=== PATIENT | male | born 1990 | race African-American/Black ===

== ENCOUNTER 2018-06-09 15:56 | Emergency (ER) | payer MEDICAID ==
[~2018-06-09] VITALS: Ht 177.8 cm; Wt 76.0 kg
[2018-06-09] MEDS ORDERED: LIDOCAINE HCL 1% 20ML VIAL (Pyxis) INJ MC ONE (18:00)
[2018-06-09] MEDS ORDERED: IBUPROFEN 600MG TABLET PO ONE (18:00)
[2018-06-09] MEDS ORDERED: HYDROCODONE/ACETAMINOPHEN 5/325MG TABLET PO ONE (18:00)
[2018-06-09] MEDS ORDERED: LIDOCAINE/EPINEPHR/TETRACAINE 3ML TP ONE (18:00)
[2018-06-09] MEDS ORDERED: LIDOCAINE HCL/PF 1% 10 MG/ML 5ML VIAL IJ NR (18:07)
[2018-06-09] MEDS ORDERED: TETANUS, DIPHTHERIA, PERTUSSIS VAC/PF 0.5ML (>7YR OLD) IM ONE (19:45)
[2018-06-09] MEDS ORDERED: SULFAMETHOXAZOLE/TRIMETHOPRIM 800/160MG TABLET PO ONE (20:15)
[2018-06-09 20:30] VITALS: BP 112/63
== END 2018-06-09 20:40 | disposition home or self-care (01) ==
LOC: ER 15:56
DX: L02.214 Cutaneous abscess of groin (principal); N43.2 Other hydrocele; Z23 Encounter for immunization
CPT/HCPCS: 10060; 76870; 90471; 90715; 93976; 99284; J3490; Z7610

== ENCOUNTER 2019-02-25 18:10 | Emergency (ER) | payer MEDICAID ==
[~2019-02-25] VITALS: Ht 177.8 cm; Wt 73.0 kg
[2019-02-25 20:13] LABS: CLARITY URINE CLEAR (CLEAR); COLOR URINE AMBER (YELLOW); KETONES URINE TRACE (NEGATIVE); LEUKOCYTE ESTERASE URINE NEGATIVE (NEGATIVE); NITRITE URINE NEGATIVE (NEGATIVE); OCCULT BLOOD URINE NEGATIVE (NEGATIVE); PROTEIN URINE TRACE (NEGATIVE); SPECIFIC GRAVITY URINE 1.031 (1.005-1.030)
[2019-02-25 21:45] VITALS: BP 115/67
[2019-02-27 04:13] LABS: HIV SCREEN 4G Non Reactive (Non Reactive)
[2019-02-28 04:13] LABS: CHLAMYDIA TRACHOMATIS NAA Negative (Negative); NEISSERIA GONORRHOEAE NAA Negative (Negative)
== END 2019-02-25 21:47 | disposition home or self-care (01) ==
LOC: ER 21:32
DX: L02.214 Cutaneous abscess of groin (principal); F17.200 Nicotine dependence, unspecified, uncomplicated; F12.10 Cannabis abuse, uncomplicated
CPT/HCPCS: 76870; 86592; 87389; 87491; 87591; 93976; 99284

== ENCOUNTER 2022-02-21 16:23 | Emergency (ER) | payer MEDICAID ==
[~2022-02-21] VITALS: Ht 175.3 cm; Wt 73.0 kg
[2022-02-21 16:38] VITALS: BP 120/63
[2022-02-21] MEDS ORDERED: CEFTRIAXONE SODIUM 500 MG/VIAL IM ONE (19:00)
[2022-02-21] MEDS ORDERED: DOXYCYCLINE HYCLATE 100MG CAPSULE PO ONE (19:00)
[2022-02-21 19:01] LABS: CLARITY URINE CLEAR (CLEAR); COLOR URINE YELLOW (YELLOW); KETONES URINE TRACE (NEGATIVE); LEUKOCYTE ESTERASE URINE NEGATIVE (NEGATIVE); NITRITE URINE NEGATIVE (NEGATIVE); OCCULT BLOOD URINE NEGATIVE (NEGATIVE); PROTEIN URINE NEGATIVE (NEGATIVE); SPECIFIC GRAVITY URINE 1.024 (1.005-1.030)
[2022-02-21] MEDS ORDERED: DOXY100C5 MT (19:20)
[2022-02-25 04:07] LABS: NEISSERIA GONORRHOEAE NAA Negative (Negative)
== END 2022-02-21 19:29 | disposition home or self-care (01) ==
LOC: ER 16:23
DX: R21 Rash and other nonspecific skin eruption (principal); F12.10 Cannabis abuse, uncomplicated
CPT/HCPCS: 81003; 87491; 87591; 96372; 99283; J0696

== ENCOUNTER 2022-05-30 15:45 | Emergency (ER) | payer OTHER, MEDICAID ==
[~2022-05-30] VITALS: Ht 175.3 cm; Wt 74.0 kg
[~2022-05-30 15:45] MED LIST: DOXY100C5 MT
[2022-05-30 16:06] VITALS: BP 112/58
[2022-05-30] MEDS ORDERED: CIPR750T4 MT (23:12)
[2022-05-30] MEDS ORDERED: CIPROFLOXACIN HCL 250MG TABLET PO NR (23:30)
== END 2022-05-30 23:41 | disposition home or self-care (01) ==
LOC: ER 15:45
DX: H61.012 Acute perichondritis of left external ear (principal); F12.10 Cannabis abuse, uncomplicated
CPT/HCPCS: 99283

== ENCOUNTER 2022-07-07 11:19 | Emergency (ER) | payer MEDICAID, OTHER ==
[~2022-07-07] VITALS: Ht 175.3 cm; Wt 65.0 kg
[~2022-07-07 11:19] MED LIST changes: +CIPR750T4 MT
[2022-07-07 11:33] VITALS: BP 101/55
[2022-07-07] MEDS ORDERED: MAGNESIUM/ALUMINUM HYDROXIDE/SIMETHICONE 30ML UDC PO STA (14:00)
[2022-07-07 15:01] LABS: BASOPHILS % 0.3 % (0.0-2.0); EOSINOPHILS % 3.5 % (0.0-5.0); HEMATOCRIT. 51.7 % (42.0-52.0); HEMOGLOBIN. 17.4 g/dL (14.0-18.0); LYMPHOCYTES % 41.2 % (20.0-50.0); MEAN CORPUSCULAR HEMOGLOBIN 31.4 pg (28.0-32.0); MEAN CORPUSCULAR VOLUME 93.2 fL (80.0-94.0); MONOCYTES % 5.8 % (2.0-8.0); NEUTROPHILS % 49.2 % (40.0-76.0); PLATELET 285 x1000/uL (130-400); RED BLOOD CELL COUNT 5.55 mill/uL (4.7-6.1); RED CELL DISTRIBUTION WIDTH 13.4 % (11.6-14.6)
[2022-07-07 15:08] LABS: CHLORIDE 110 mEq/L (98-107)
== END 2022-07-07 16:34 | disposition home or self-care (01) ==
LOC: ER 11:55
DX: R10.9 Unspecified abdominal pain (principal)
CPT/HCPCS: 36415; 80053; 85025; 99283

== ENCOUNTER 2024-11-21 15:38 | Emergency (ER) | payer MEDICAID ==
[~2024-11-21] VITALS: Ht 177.8 cm; Wt 74.0 kg
[2024-11-21 15:41] VITALS: BP 105/71; PULSE 63; RESP 16; TEMP 98.5; O2SAT 99
[2024-11-21] MEDS ORDERED: DOXY100C5 MT (20:14)
[2024-11-21] MEDS: CEFTRIAXONE SODIUM 500MG VIAL IM ONE (20:52)
[2024-11-21] MEDS: DOXYCYCLINE HYCLATE 100MG CAPSULE PO ONE (21:02)
== END 2024-11-21 21:45 | disposition home or self-care (01) ==
LOC: ER 15:38
DX: Z20.2 Contact with and (suspected) exposure to infections with a predominantly sexual mode of transmission (principal); F12.90 Cannabis use, unspecified, uncomplicated
CPT/HCPCS: 99283; 86592; 87491; 87529 ×2; 87591; 36415; 96372; J0696